=== PATIENT | male | born 1980 | race Caucasian/White ===

== ENCOUNTER 2024-04-26 11:01 | Emergency (ER) | payer OTHER, SELFPAY ==
[2024-04-26 11:07] VITALS: BP 160/98
[2024-04-26 11:36] VITALS: BMI 32.4
[2024-04-26 13:13] LABS: % Basophils 0.5 % (0-2); % Eosinophils 3.6 % (0-6); % Immature Granulocytes 0.5 % (0-0.5); % Lymphocytes 12.9 % (20.5-51.1); % Monocytes 11.8 % (1.7-9.3); % Neutrophils 70.7 % (42.2-75.2); Absolute Basophils 0.1 10^3/uL (0-0.2); Absolute Eosinophils 0.4 10^3/uL (0-0.7); Absolute Immature Granulocytes 0.1 10^3/uL (0-0.05); Absolute Lymphocytes 1.4 10^3/uL (1.2-3.4); Absolute Monocytes 1.3 10^3/uL (0.1-0.6); Absolute Neutrophils 7.9 10^3/uL (1.4-6.5); Hematocrit 39.3 % (39.0-52.0); Hemoglobin 13.6 g/dL (13.0-18.0); Mean Corp Hgb Conc. 34.6 g/dL (33.0-37.0); Mean Corpuscular Hgb 30.4 pg (27.0-31.0); Mean Corpuscular Volume 87.9 fL (80.0-94.0); Mean Platelet Volume 9.1 fL (7.4-10.4); Nucleated Red Blood Cells % 0 % (-); Platelet Count 278 10^3/uL (130-400); Red Blood Cell Count 4.47 10^6/uL (4.70-6.10); Red Cell Dist. Width 13.2 % (11.5-14.5); White Blood Cell Count 11.1 10^3/uL (4.8-10.8)
[2024-04-26 13:22] LABS: Urine Albumin Trace (Neg - Trace); Urine Bilirubin Negative (Negative); Urine Character Clear (Clear); Urine Color Yellow; Urine Glucose Negative (Negative); Urine Ketone Negative (Negative); Urine Leukocyte Negative (Negative); Urine Nitrite Negative (Negative); Urine Occult Blood Negative (Negative); Urine Specific Gravity 1.025 (<1.030); Urine Urobilinogen Negative (Neg - 1+)
[2024-04-26 13:28] LABS: ALT (SGPT) 27 U/L (0-50); AST (SGOT) 22 U/L (17-59); Albumin 3.9 g/dl (3.5-5.0); Alkaline Phosphatase 76 U/L (38-126); Blood Urea Nitrogen 28 mg/dl (9-20); Calcium 9.4 mg/dl (8.4-10.2); Carbon Dioxide 27 mmol/L (22-30); Chloride 104 mmol/L (98-107); Estimated Creatinine Clearance 90 ml/min; Glucose 98 mg/dl (70-99); Potassium 4.1 mmol/L (3.5-5.1); Sodium 139 mmol/L (135-145); Total Bilirubin 0.8 mg/dl (0.2-1.3); Total Protein 6.4 g/dl (6.3-8.2); eGFR > 60.00
[2024-04-26] MEDS: NSS 1000 IV (13:58)
[2024-04-26] MEDS: TORADOL 30 MG IV (14:31)
--- NOTE | 2024-04-26 16:51 | ED.GENMED ---
History of Present Illness
General
Chief Complaint: Flank Pain
Source: patient
Exam Limitations: none
Time Seen by Provider: 04/26/24 11:32
Nursing documentation reviewed up to this point in time: agreed with
History of Present Illness
History of Present Illness:
43-year-old male presenting to the emergency department today with concerns of right-sided flank pain intermittently over the past 10 days also has had some nausea. Taking Motrin at home with good relief. Pain worsened today. Denies any fevers
chest pain shortness of breath or additional emergent concerns.
Review of Systems
Review of Systems
Allergies reviewed?: Yes
All Other Systems: ROS reviewed and negative except as documented in HPI and ROS
Phy Exam
Physical Exam
Physical Exam:
GENERAL: Alert , in no apparent distress
EYE: pupils equal and reactive
NECK: Supple, no significant adenopathy.
ENT: o/p clr, mmm.
CARDIAC: Regular rate and rhythm .
LUNGS: Clear breath sounds bilaterally, no acute respiratory distress, no wheezes/rales/rhonchi
ABDOMEN: Soft, without focal tenderness, no r/g, no cvat
NEUROLOGICAL: Alert and oriented, no focal neuro deficits
SKIN: Warm and dry, skin intact.
MUSCULOSKELETAL: No edema, well perfused.
PSYCH: Normal and appropriate interaction.
Course
Orders/Labs/Results
Orders:
Orders
04/26/24 12:13
CT Abd/pel Without Iv Or Oral Urgent
Comment:
Reason For Exam: flank pain right side
04/26/24 12:55
Complete Blood Count/With Diff Urgent
Comprehensive Metabolic Panel Urgent
04/26/24 13:09
Urinalysis Reflex To Culture Urgent
Date Specimen was Collected: 04/26/24
Time Specimen was Collected: 13:08
04/26/24 13:32
0.9% Sodium Chloride 1000 ml [Nss] 1,000 ml IV BOLUS
04/26/24 14:29
Ketorolac [Toradol] 30 mg .ROUTE .STK-MED ONE
04/26/24 14:31
Ketorolac [Toradol] 30 mg IV NOW STA
Abnormal Lab Results
04/26/24
12:55
WBC 11.1 H 10^3/uL
(4.8-10.8)
RBC 4.47 L 10^6/uL
(4.70-6.10)
Abs Immat Gran (auto) 0.1 H 10^3/uL
(0-0.05)
Absolute Neuts (auto) 7.9 H 10^3/uL
(1.4-6.5)
Absolute Monos (auto) 1.3 H 10^3/uL
(0.1-0.6)
Lymphocytes % 12.9 L %
(20.5-51.1)
Monocytes % 11.8 H %
(1.7-9.3)
BUN 28 H mg/dl
(9-20)
Creatinine 1.4 H mg/dL
(0.7-1.3)
04/26/24 12:55
04/26/24 12:55
Vital Signs
Initial and Last Documented VS:
Initial Vital Signs
Temp Pulse Resp BP Pulse Ox
98.4 F 79 16 160/98 98
04/26/24 11:07 04/26/24 11:07 04/26/24 11:07 04/26/24 11:07 04/26/24 11:07
Last Documented Vital Signs
Temp Pulse Resp BP Pulse Ox
98.4 F 79 16 160/98 98
04/26/24 11:07 04/26/24 11:07 04/26/24 11:07 04/26/24 11:07 04/26/24 11:07
MDM/Problems Addressed
MDM/Problems Addressed:
43-year-old male presenting to the emergency department today with concerns of intermittent right-sided flank pain over the past 10 days history of kidney stone feels very similar. Here he has no reproducible pain asymptomatic during my assessment
initial blood pressure elevated otherwise vital signs are normal. Labs showing a very slight white count of 11.1 creatinine level of 1.4 but also BUN elevated to 28 was given a liter of fluid for this. Urinalysis without signs of infection. CT
scan showing a proximal right sided ureteral stone 6 mm in size. Case was discussed with urology they recommended outpatient trial of passage was given information for follow-up but otherwise stable for discharge. Return precautions given.
*Critical Care Note
Total Time (30-74mins, 75-104mins- exclusive of procedures): Not Applicable
ED Attending Note
-
Portions of this chart may have been created with voice recognition software.� Occasional wrong word or��sound alike� substitutions may have occurred due to the inherent limitations of voice recognition software.
Discharge Plan
Departure
Patient Disposition: Home (Routine Discharge)
Date of Disposition: 04/26/24
Time of Disposition: 16:51
Patient with high blood pressure during this ER visit?: No
Condition: Good
Covid-19: Not Applicable
Discharge Problem:
Right ureteral calculus
Instructions: Renal Colic (DC), How to Strain Your Urine
Prescriptions:
New
tamsulosin [Flomax] 0.4 mg capsule
0.4 mg PO HS 14 Days Qty: 14 0RF
ibuprofen 600 mg tablet
600 mg PO Q8H PRN (Reason: Pain) Qty: 14 0RF
metoclopramide HCl [Reglan] 10 mg tablet
10 mg PO Q6H PRN (Reason: nausea and vomiting) Qty: 7 0RF
Referrals:
Zia Macias MD [Active] - Follow up in 5-7 days
NONE,* [Family Provider] -
Activity Restrictions/Additional Instructions:
You came to the emergency department today with concerns of flank pain. You are found to have a 6 mm stone in your proximal ureter. Otherwise had a reassuring assessment. Please follow closely with urology. Return to the emergency department for
any worsening, new or concerning symptoms.
Interventions
Interventions:
*Risk Screen - Suicide Last Done: 04/26/24 11:38
*General Assessment Last Done: 04/26/24 11:38
*Neglect/Abuse Screening Last Done: 04/26/24 11:38
ED- Fall Risk Assessment Last Done: 04/26/24 11:40
*ED COVID-19 Vaccine History Last Done: 04/26/24 11:34
DJ-[place] Assessment Last Done: 04/26/24 11:40
ED-Male Genitourinary Assessment Last Done: 04/26/24 11:40
Discharge Date and Time
Print Language: MOLDOVAN
[2024-04-26] MEDS: FLOMAX 0.4 MG PO (17:00)
[2024-04-26 17:02] VITALS: BP 141/98
== END 2024-04-26 17:15 | disposition home or self-care (01) ==
LOC: EMR 11:01
PROVIDERS: Physician Assistant; EMERGENCY PHYSICIAN Student in an Organized Health Care Education/Training Program
DX: N20.1 Calculus of ureter (principal); Z87.442 Personal history of urinary calculi
CPT/HCPCS: 99284; 74176; 80053; 81003; 85025